=== PATIENT | female | born 1985 | race Caucasian/White ===

== ENCOUNTER 2018-10-09 05:04 | Emergency (ER) | payer OTHER ==
[~2018-10-09] VITALS: Ht 167.6 cm; Wt 100.2 kg
[2018-10-09 05:04] VITALS: BP 128/86
[2018-10-09] MEDS ORDERED: LIDO:MAALOX 1:1 20 ML SINGLE DOSE. ONE (05:19)
[2018-10-09] MEDS ORDERED: SUCR1ORA5 PO (05:30)
--- NOTE | 2018-10-09 05:30 | PHYS DOC ---
Past History Past Medical History: GERD Past Surgical History: Cholecystectomy, Other Alcohol Use: Occasionally Drug Use: None Adult General Chief Complaint Chief Complaint: CHEST PAIN HPI HPI Patient is a 32-year-old female with past medical history of cholecystectomy due to gallstones, who presents with chief complaint of epigastric abdominal pain/atypical chest pain. The patient states the pain begins in her epigastric/lower thoracic area and radiates around toward the substernal area. The pain is described as a dull ache that becomes sharp. Patient states the pain is intermittent and occurs in "attacks" of 5-10 minutes. She states these episodes occur about twice a year since her gallbladder was removed. However, tonight she has experienced 5 episodes since waking up at approximately 2:30 AM this morning. She states the pain is a 9 out of 10 in severity during the episodes, but currently she has no pain. The pain is associated with shortness of breath. She denies any positional features of pain. The pain is not associated with food. She denies any nausea or vomiting. She admits to subjective fevers for the last 2 days intermittently. She denies any abdominal pain, dysuria, hematuria, diarrhea, or constipation. Denies leg swelling or calf tenderness. Denies cardiac risk factors. Denies hx or family history of DVT/PE. Review of Systems Review of Systems Constitutional: Reports subjective fevers Eyes: Denies redness or eye pain HENT: Denies nasal congestion or sore throat Respiratory: Denies cough. shortness of breath only during pain episodes. Cardiovascular: Reports burning chest discomfort, currently resolved. Denies palpitations. GI: Reports epigastric abdominal pain; denies nausea or vomiting : Denies dysuria or hematuria Musculoskeletal: Reports thoracic back pain, that radiates to the front. Denies any other joint pain Integument: Denies rash or skin lesions Neurologic: Denies headache, focal weakness or sensory changes Complete systems were reviewed and found to be within normal limits, except as documented in this note. Current Medications Current Medications Current Medications Medications (Trade) Dose Ordered Sig/Craig Start Time Stop Time Status Last Admin Dose Admin Multi-Ingredient Mouthwash/Gargle (Gi Cocktail) 20 ml 1X ONCE 10/09/18 05:30 10/09/18 05:31 UNV Allergies Allergies Allergies Coded Allergies Type Severity Reaction Last Updated Verified No Known Drug Allergies 10/09/18 No Physical Exam Physical Exam Constitutional: Well developed, well nourished, no acute distress, non-toxic appearance HENT: Normocephalic, atraumatic, oropharynx moist Eyes: PERRL, EOMI, conjunctiva normal, no discharge Neck: Normal range of motion, no tenderness, supple Cardiovascular: Heart rate normal, regular rhythm Lungs & Thorax: Bilateral breath sounds clear to auscultation, no wheezing Abdomen: Soft, mild epigastric tenderness, no rebound tenderness/guarding/distention Skin: Warm, dry, no erythema, no rash Back: Mild thoracic paraspinal tenderness, no CVA tenderness Extremities: No calves tenderness, ROM intact, no edema Neurologic: Alert and oriented X 3, normal motor function, normal sensory function, no focal deficits noted Psychologic: Affect normal, judgement normal, mood normal Current Patient Data Vital Signs Vital Signs Date Time Temp Pulse Resp B/P (MAP) Pulse Ox O2 Delivery O2 Flow Rate FiO2 10/09/18 05:04 97.5 75 16 100 Room Air EKG EKG 10/09/2018 @ 05:22 shows normal sinus rhythm at [address] elevations.[] Radiology/Procedures Radiology/Procedures [] Course & Med Decision Making Course & Med Decision Making Patient is a 32-year-old female who presents with atypical chest pain. ECG showed no ST elevations or other concerning abnormalities. History and physical suggest GI source of pain most likely. GI cocktail and IV pepcid administered. Labs obtained and posted to chart. Low cardiac risk factors. HEART score 0. PERC rule satisfied. Sucralfate prescribed and follow-up with GI outpatient advised. Patient stable for discharge with outpatient follow-up with PCP/GI. Discussed findings and plan with patient, who acknowledges understanding and agreement. Dragon Disclaimer Dragon Disclaimer This electronic medical record was generated, in whole or in part, using a voice recognition dictation system. Departure Departure: Impression: Primary Impression: Atypical chest pain Disposition: HOME, SELF-CARE Condition: STABLE Referrals: PCP,MARY (PCP) LIZBETH SHEETS MD Patient Instructions: Chest Pain (Nonspecific), [id number], Gastritis, Adult, [id number] Scripts Sucralfate (CARAFATE) 1 Gm/10 Ml Oral.susp 10 ML PO BID for Gastritis, #120 ML Prov: KAREN RM DO 10/09/18 HEART Score for Chest Pain PTs The HEART Score for CP Pts HEART Score for Chest Pain: HEART Score for Chest Pain Response (Comments) Value History Slighlty/Non-Suspicious 0 ECG Normal 0 Age < 45 0 Risk Factors No Risk Factors 0 Troponin < Normal Limit 0 Total 0 Risk Factors: Risk Factors: DM, Current or recent (<one month) smoker, HTN, HLP, family history of CAD, obesity. Risk Scores: Score 0 - 3: 2.5% MACE over next 6 weeks - Discharge Home Score 4 - 6: 20.3% MACE over next 6 weeks - Admit for Clinical Observation Score 7 - 10: 72.7% MACE over next 6 weeks - Early Invasive Strategies PERC Rule for PE PERC Rule for PE Response (Comments) Value Age > 50: No 0 HR > 100: No 0 Sa02 on room air <95%: No 0 Unilateral leg swelling: No 0 Hemoptysis: No 0 Recent surgery or trauma: No 0 Prior PE or DVT: No 0 Hormone use: No 0 Total 0 RMKAREN DO Oct 09, 2018 05:30
[2018-10-09 05:41] LABS: BASO % 0 % (0-3); EOS # 0.2 x10^3/uL (0.0-0.7); EOS % 3 % (0-3); HEMATOCRIT 44.8 % (36.0-47.0); HEMOGLOBIN 14.8 g/dL (12.0-15.5); LYMPH # 1.5 x10^3/uL (1.0-4.8); LYMPH % 19 % (24-48); MEAN CORPUSCULAR HEMOGLOBIN 29 pg (25-35); MEAN CORPUSCULAR HGB CONC 33 g/dL (31-37); MEAN CORPUSCULAR VOLUME 88 fL (79-100); MONO # 0.5 x10^3/uL (0.0-1.1); MONO % 7 % (0-9); NEUT # 5.6 x10^3uL (1.8-7.7); NEUT % 71 % (31-73); PLATELET COUNT 156 x10^3/uL (140-400); RED BLOOD COUNT 5.07 x10^6/uL (3.50-5.40); RED CELL DISTRIBUTION WIDTH 14.3 % (11.5-14.5); WHITE BLOOD COUNT 7.8 x10^3/uL (4.0-11.0)
[2018-10-09 05:52] LABS: MAGNESIUM 1.9 mg/dL (1.8-2.4)
[2018-10-09 05:55] LABS: ALBUMIN 3.6 g/dL (3.4-5.0); ALBUMIN/GLOBULIN RATIO 0.9 (1.0-1.7); CREATININE 0.7 mg/dL (0.6-1.0); GFR 97.6; POTASSIUM 3.5 mmol/L (3.5-5.1); TOTAL BILIRUBIN 0.8 mg/dL (0.2-1.0); TOTAL PROTEIN 7.5 g/dL (6.4-8.2)
[2018-10-09] MEDS ORDERED: LIDO:MAALOX 1:1 20 ML SINGLE DOSE. PO ONE (06:00)
[2018-10-09] MEDS ORDERED: FAMOTIDINE 20 MG/2 ML VIAL IVP ONE (06:00)
== END 2018-10-09 06:12 | disposition home or self-care (01) ==
LOC: ER 05:04
DX: R07.89 Other chest pain (principal); R10.13 Epigastric pain; K21.9 Gastro-esophageal reflux disease without esophagitis; Z90.49 Acquired absence of other specified parts of digestive tract
CPT/HCPCS: 36415; 80053; 83690; 83735; 84484; 85025; 93005; 96374; 99285; J3490